=== PATIENT | female | born 1985 | race Caucasian/White ===

== ENCOUNTER 2021-03-21 10:26 | Outpatient (CLI) | payer OTHER ==
[~2021-03-21] VITALS: Ht 160 cm; Wt 65.8 kg
[~2021-03-21 10:26] MED LIST: IBP800T PO
[2021-03-21 10:29] VITALS: BP 140/87
[2021-03-21] MEDS ORDERED: EPINEPHrine INJECTION 1 MG/ML AMP IM PRN (10:45)
[2021-03-21] MEDS ORDERED: ACETAMINOPHEN 500 MG TAB (TYLENOL) PO PRN (10:45)
[2021-03-21] MEDS ORDERED: BAMLANIVIMAB 700 MG/ETESEVIMAB 1,400 MG IN NS IV ONE ×3 (10:45)
[2021-03-21] MEDS ORDERED: diphenhydrAMINE 50 MG/ML INJ (BENADRYL) IV PRN (10:45)
[2021-03-21] MEDS ORDERED: ONDANSETRON 4 MG/2 ML (SDV) Z0FRAN IV PRN (10:45)
[2021-03-21 11:53] VITALS: BP 116/51
== END 2021-03-21 11:54 | disposition home or self-care (01) ==
LOC: INFUSION 10:26
PROVIDERS: ATTEND Physician Assistant
DX: U07.1 COVID-19 (principal)